=== PATIENT | male | born 1980 | race Caucasian/White ===

== ENCOUNTER 2016-10-05 17:14 | Emergency (ER) | payer MEDICAID ==
[~2016-10-05] VITALS: Wt 79.0 kg
[~2016-10-05 17:14] MED LIST: AMO500 PO; CEPH-443 PO; DIPH25CA6 PO; HYDR-3498 PO; HYDR-762 PO; IBUP-1542 PO; PRED20TA PO
[2016-10-05] MEDS ORDERED: AMO500 PO (17:47)
--- NOTE | 2016-10-05 18:32 | ERD ---
ER Documentation Chief Complaint Date/Time DATE: 10/05/16 TIME: 18:26 Chief Complaint THROAT PAIN HPI This is a 36-year-old male presents emergency department for sore throat and cough 5 days. Patient states sore throat is severe at times. Cough is dry nonproductive. No wheezing, shortness of breath or difficulty breathing. No chest pain or back pain. No difficulty swallowing or drooling. No muffled voice. No earache or headache. No generalized body aches. No nausea, vomiting , diarrhea or abdominal pain. ROS All systems reviewed and are negative except as per history of present illness. Medications Home Meds Active Scripts Amoxicillin* (Amoxicillin*) 500 Mg Cap, 500 MG PO BID for 10 Days, CAP Prov:COBY OQUENDO NP 10/05/16 Prednisone* (Prednisone*) 20 Mg Tab, 40 MG PO DAILY for 4 Days, TAB Prov:ALLAN RODRIGUEZ MD 07/07/16 Amoxicillin* (Amoxicillin*) 500 Mg Cap, 500 MG PO TID for 10 Days, CAP Prov:ALLAN RODRIGUEZ MD 07/07/16 Ibuprofen* (Ibuprofen*) 600 Mg Tablet, 600 MG PO Q6, #15 TAB Prov:ALLAN RODRIGUEZ MD 07/07/16 Diphenhydramine Hcl (Benadryl) 25 Mg Cap, 25 MG PO QID, #14 CAP Prov:ALLAN RODRIGUEZ MD 10/13/15 Ibuprofen* (Ibuprofen*) 600 Mg Tablet, 600 MG PO Q6, #14 TAB Prov:ALLAN RODRIGUEZ MD 10/13/15 Cephalexin* (Keflex*) 500 Mg Capsule, 500 MG PO QID, #28 CAP Prov:ALLAN RODRIGUEZ MD 10/13/15 Hydrocodone Bit-Acetaminophen* ([place]*) 5-325 Mg Tab, 1 TAB PO Q6 Y for PAIN, # 20 TAB Prov:JARETT ROSE NP 07/18/15 Ibuprofen* (Ibuprofen*) 600 Mg Tablet, 600 MG PO Q6H Y for pa, #30 TAB Prov:JARETT ROSE NP 07/18/15 Hydrocodone Bit-Acetaminophen* ([place]*) 10-325 Mg Tablet, 1 TAB PO Q6 Y for PAIN , #12 TAB Prov:LAURA EMANUEL MD 07/02/15 Allergies Allergies: Coded Allergies: No Known Allergy (Unverified , 10/13/15) PMhx/Soc Medical and Surgical Hx: pt denies Medical Hx, pt denies Surgical Hx History of Surgery: No Anesthesia Reaction: No Hx Neurological Disorder: No Hx Respiratory Disorders: No Hx Cardiac Disorders: No Hx Psychiatric Problems: No Hx Miscellaneous Medical Probl: No Hx Alcohol Use: No Hx Substance Use: No Hx Tobacco Use: No Physical Exam Vitals Vital Signs Date Time Temp Pulse Resp B/P Pulse Ox O2 Delivery O2 Flow Rate FiO2 10/05/16 17:20 98.1 83 17 133/65 98 Physical Exam Const: No acute distress, alert Head: Atraumatic Eyes: Normal Conjunctiva ENT: Normal External Ears, Nose and Mouth. Mildly erythematous to posterior pharynx. No exudate. TMs normal bilaterally. Neck: Full range of motion..~ No meningismus. Resp: Clear to auscultation bilaterally. No wheezing, rhonchi or crackles. Cardio: Regular rate and rhythm, no murmurs Abd: Soft, non tender, non distended. Normal bowel sounds Skin: No petechiae or rashes Back: No midline or flank tenderness Ext: No cyanosis, or edema Neur: Awake and alert Psych: Normal Mood and Affect Procedures/MDM Medical decision makin-year-old male presents emergency department for sore throat and cough 5 days. No signs or symptoms of respiratory distress. Oxygen saturation 98% on room air. No fevers or chills. ENT exam reveals erythematous posterior pharynx without exudate or lesions. Patient is requesting antibiotic in case symptoms worsen. Vital signs remained stable. Patient appears calm and comfortable throughout visit. Low suspicion for strep pharyngitis or peritonsillar abscess. Patient likely has viral pharyngitis versus upper respiratory infection. Patient is appropriate for outpatient management will be given prescription for amoxicillin in case symptoms worsen. Instructed patient to follow-up with primary care provider in the next 2-3 days for reassessment and additional management. Return to ED for any high fever, chest pain, difficulty breathing, shortness breath, wheezing, vomiting, diarrhea, abdominal pain or any new or worsening symptoms. Patient verbalizes understanding. All questions answered at discharge. Departure Diagnosis: Primary Impression: Sore throat Condition: Stable Patient Instructions: Self-Care for Sore Throats Referrals: [facility] () Usted se cordova hecho un examen mdico de control que le indica que no est en lucas condicin que requiera tratamiento urgente en el Departamento de Emergencia. Un estudio ms profundo y el tratamiento de hu condicin pueden esperar sin ningn riesgo hasta que usted sea atendida/o en el consultorio de hu mdico o lucas cl david. Es responsabilidad suya arreglar lucas jeni para el seguimiento del chitra. MANEJO DE CONDICIONES NO URGENTES EN EL FUTURO 1) Si usted tiene un mdico de atencin primaria: Usted debera llamar a hu mdico de atencin primaria antes de venir al departamento de emergencia. Despus de las horas de consultorio, hu doctor o hu asociado/a est disponible por telfono. El mdico o enfermero de oliva en el servicio telefnico puede asesorarle por sudha medio para atender el problema, o chitra contrario se puede programar lucas jeni. 2) Si usted no tiene un mdico de atencin primaria: Llame al mdico o clnica de referencia que aparece abajo kylah las horas de consultorio para hacer lucas jeni para que le vean. CLINICAS: [facility] [phone] [facility] [phone] [facility] [phone] [address] [facility] [phone] [address] [facility] [phone] [address] [facility]. [phone] [address] [facility] () Usted se cordova hecho un examen mdico de control que le indica que no est en lucas condicin que requiera tratamiento urgente en el Departamento de Emergencia. Un estudio ms profundo y el tratamiento de hu condicin pueden esperar sin ningn riesgo hasta que usted sea atendida/o en el consultorio de hu mdico o lucas cl david. Es responsabilidad suya arreglar lucas jeni para el seguimiento del chitra. MANEJO DE CONDICIONES NO URGENTES EN EL FUTURO 1) Si usted tiene un mdico de atencin primaria: Usted debera llamar a hu mdico de atencin primaria antes de venir al departamento de emergencia. Despus de las horas de consultorio, hu doctor o hu asociado/a est disponible por telfono. El mdico o enfermero de oliva en el servicio telefnico puede asesorarle por sudha medio para atender el problema, o chitra contrario se puede programar lucas jeni. 2) Si usted no tiene un mdico de atencin primaria: Llame al mdico o condado institucions de referencia que aparece abajo kylah las horas de consultorio para hacer lucas jeni para que le vean. SI USTED NO PUEDE PAGAR PARA ANDRE UN MEDICO puede ir a: [facility] [address] [place] [address] [facility] [address] [place] [address] [facility] [address] [place] [address] PARA [facility] [address] [place], [place] [id number] Additional Instructions: Llame al doctor MAANA y todd lucas JENI PARA DENTRO DE 2-3 SCOTT.Dgale a la secretaria que nosotros le instruimos hacer esta jeni.Avise o llame si hu condicin se empeora antes de la jeni. Regresa aqui si peor o no mejor. COBY OQUENDO NP Oct 05, 2016 18:32
== END 2016-10-05 17:49 | disposition home or self-care (01) ==
LOC: E/R 17:14
DX: J02.9 Acute pharyngitis, unspecified (principal)
CPT/HCPCS: 99283

== ENCOUNTER 2017-02-04 18:45 | Emergency (ER) | payer MEDICAID ==
[~2017-02-04] VITALS: Ht 165.1 cm; Wt 81.0 kg
[2017-02-04 18:49] VITALS: Ht 165.1 cm; Wt 81.0 kg
[2017-02-04 19:57] LABS: URINE BLOOD (Dip) POC Negative (NEGATIVE)
--- NOTE | 2017-02-04 20:09 | ERD ---
ER Documentation Chief Complaint Date/Time DATE: 02/04/17 TIME: 20:06 Chief Complaint c/o bilateral eye pain and redness x 2 days. States (+) blurred vision. HPI This 36-year-old male patient presents to the emergency department with multiple unrelated complaint. First patient reports itchy red eyes not improving with eye moisturizer that he had brought at local drugstore, patient reports symptoms for over 7 days. Patient denies any change in vision but reports photosensitivity, denies any discharge coming from his eyes or waking with crest in the morning feeling his eyelids shut. Second complaint is that when he finishes voiding he reports dripping of urine, denies any perianal pain with sitting, denies any history of benign prostate hypertrophy, patient reports that he is sexually active, denies any discharge from his penis. Last complaint is a rash in his left groin he describes as pruritic, patient denies any outdoor sport activities or gym activities does report he sweats easily. Patient has tried no [id number] medication for symptomatic relief of itching. Denies having a primary care physician. Denies dysuria, hematuria, abdominal pain ROS All systems reviewed and are negative except as per history of present illness. Medications Home Meds Active Scripts Amoxicillin* (Amoxicillin*) 500 Mg Cap, 500 MG PO BID for 10 Days, CAP Prov:COBY OQUENDO NP 10/05/16 Prednisone* (Prednisone*) 20 Mg Tab, 40 MG PO DAILY for 4 Days, TAB Prov:ALLAN RODRIGUEZ MD 07/07/16 Amoxicillin* (Amoxicillin*) 500 Mg Cap, 500 MG PO TID for 10 Days, CAP Prov:ALLAN RODRIGUEZ MD 07/07/16 Ibuprofen* (Ibuprofen*) 600 Mg Tablet, 600 MG PO Q6, #15 TAB Prov:ALLAN RODRIGUEZ MD 07/07/16 Diphenhydramine Hcl (Benadryl) 25 Mg Cap, 25 MG PO QID, #14 CAP Prov:ALLAN RODRIGUEZ MD 10/13/15 Ibuprofen* (Ibuprofen*) 600 Mg Tablet, 600 MG PO Q6, #14 TAB Prov:ALLAN RODRIGUEZ MD 10/13/15 Cephalexin* (Keflex*) 500 Mg Capsule, 500 MG PO QID, #28 CAP Prov:ALLAN RODRIGUEZ MD 10/13/15 Hydrocodone Bit-Acetaminophen* ([place]*) 5-325 Mg Tab, 1 TAB PO Q6 Y for PAIN, # 20 TAB Prov:JARETT ROSE NP 07/18/15 Ibuprofen* (Ibuprofen*) 600 Mg Tablet, 600 MG PO Q6H Y for pa, #30 TAB Prov:JARETT ROSE NP 07/18/15 Hydrocodone Bit-Acetaminophen* ([place]*) 10-325 Mg Tablet, 1 TAB PO Q6 Y for PAIN , #12 TAB Prov:LAURA EMANUEL MD 07/02/15 Allergies Allergies: Coded Allergies: No Known Allergy (Unverified , 10/13/15) PMhx/Soc History of Surgery: No Anesthesia Reaction: No Hx Neurological Disorder: No Hx Respiratory Disorders: No Hx Cardiac Disorders: No Hx Psychiatric Problems: No Hx Miscellaneous Medical Probl: No Hx Alcohol Use: No Hx Substance Use: No Hx Tobacco Use: No Physical Exam Vitals Vital Signs Date Time Temp Pulse Resp B/P Pulse Ox O2 Delivery O2 Flow Rate FiO2 02/04/17 18:49 97.7 86 18 124/83 97 Vitals stable, triage notes reviewed Physical Exam Const: Well-nourished, well-hydrated, well-appearing in no acute distress Head: Atraumatic Eye Exam: Visual Acuity: 20/20 bilaterally Visual Jacobs: Intact in all four quadrants bilaterally Lac ducts/glands: No swelling Lids w/ evertion: Normal, no foreign body ENT: Normal External Ears, Nose and Mouth. Neck: Resp: Respirations even and unlabored, no respiratory distress Cardio: Abd: Soft, non tender, non distended. Skin: Left groin presents with white circumscribed plaques scaly, skin intact without erythema or scratch miller. Back: Ext: Neur: Awake and alert Psych: Normal Mood and Affect Results 24 hrs Laboratory Tests Test 02/04/17 20:02 Bedside Urine pH (LAB) 7.0 Bedside Urine Protein (LAB) Negative Bedside Urine Glucose (UA) Negative Bedside Urine Ketones (LAB) Negative Bedside Urine Blood Negative Bedside Urine Nitrite (LAB) Negative Bedside Urine Leukocyte Esterase (L Negative Urinalysis normal findings without evidence of infection no leukocytosis, nitrates or microscopic hematuria Procedures/MDM This 36-year-old male patient presents to emergency department with multiple complaints. Patient reports red irritated eyes without any evidence of infection, low suspicion for conjunctivitis, foreign body, or iritis. Patient secondary complaint is a post mitration drip without complaint of dysuria, hematuria, or black pain. Last complaint is a paretic left groin rash. Low suspicion for a urinary tract infection, STI or HSV, or prostatitis physical exam supports a tinea cruris, urinary tract infection ruled out by normal urinalysis, patient will be discharged home with prescriptions for Opticon A ophthalmic drops, ketoconazole applied to affected area 3 times daily and instructions to follow-up with primary care physician for prostate evaluation. I feel the patient is stable for discharge at this time. I have discussed results, examination findings, the treatment plan with the patient and family present prior to discharge. Indications for emergent reevaluation, side effects of medication were also discussed. All questions were answered. Patient verbalizes understanding and agrees with plan of care. Departure Diagnosis: Primary Impression: Tinea cruris Additional Impression: Allergic conjunctivitis Laterality: bilateral Qualified Code: H10.13 - Allergic conjunctivitis, bilateral Patient Instructions: Conjunctivitis, Allergic, Tinea Cruris, General [facility] Additional Instructions: Thank you for for coming to [facility] for your care today. Please ask your nurse or provider if you have questions about your care today and do not leave until all your questions have been answered. Please use any medications given as directed and follow-up with your doctor (or the doctor you were referred to) in the next 2-3 days. If you do not have a primary care doctor you may follow up at the [facility] (listed below). You may also use motrin and tylenol as needed for fever and/or pain unless instructed otherwise by your provider or nurse. Indications for more urgent follow-up have been discussed, but you may return to the Emergency Department at ANY time for any worrisome or worsening symptoms. If you have abdominal pain, please know that no test or exam you received is perfect and you should follow up within 8 hours for continued pain. If you had any imaging studies today, such as an X-Ray or CT Scan, these studies will be reviewed later by a radiologist. You will be called if there are important findings that were not identified today, so make sure the contact information you provided at registration is correct. If you received any narcotic pain control medicine today, such as Vicodin, Morphine or Dilaudid, your coordination and judgment may be affected for a number of hours. Please do not drive or operate heavy machinery, and you may want someone to assist you at home. If you were given a prescription for narcotic medication, be aware that it is very addictive- use sparingly and only if necessary. ZUNILDA MONTEZ Feb 04, 2017 20:09
[2017-02-04] MEDS ORDERED: NAPH15DR6 OP (20:23)
[2017-02-04] MEDS ORDERED: KET2CR15 TOP (20:26)
== END 2017-02-04 20:36 | disposition home or self-care (01) ==
LOC: FTE 18:45
DX: B35.6 Tinea cruris (principal); H10.13 Acute atopic conjunctivitis, bilateral
CPT/HCPCS: 81003; 99283

== ENCOUNTER 2017-09-02 19:20 | Emergency (ER) | END 2017-09-02 21:22 | disposition home or self-care (01) ==

== ENCOUNTER 2017-09-11 20:39 | Emergency (ER) | END 2017-09-12 05:32 | disposition home or self-care (01) ==

== ENCOUNTER 2018-06-14 10:49 | Emergency (ER) | END 2018-06-14 11:33 | disposition home or self-care (01) ==

== ENCOUNTER 2018-08-18 13:52 | Emergency (ER) | payer MEDICAID ==
[~2018-08-18] VITALS: Ht 162.6 cm; Wt 71.6 kg
[~2018-08-18 13:52] MED LIST changes: +ACET500C5 PO; +ALBU8.5H8 INH; -AMO500 PO; +AMOX500C2 PO; +AZIT250T PO; +BENZ-6 PO; +CETI10CA PO; +HYDR-3980 PO; +IBUP800T48 PO; +KET2CR15 TOP; +NAPH15DR6 OP
[2018-08-18 14:00] VITALS: Ht 162.6 cm; Wt 71.6 kg
[2018-08-18] MEDS ORDERED: KETOROLAC 15 MG INJ IV STA (21:45)
[2018-08-18] MEDS ORDERED: SOD CHLORIDE 0.9% 1,000 ML IV STA (21:45)
--- NOTE | 2018-08-18 22:04 | ERD ---
ER Documentation Chief Complaint Chief Complaint WOUND CHECK TO ABD INCISION HERINA REPAIR JUN 2018. BLEEDING/CLEAR LIQUID HPI 38-year-old man complaining of constant nonradiating nonexertional pain to the right groin status post herniorrhaphy about a month and a half ago. He denies fevers or chills, no discharge, no chest pain or shortness of breath. ROS All systems reviewed and are negative except as per history of present illness. Medications Home Meds Discontinued Scripts Ibuprofen* (Motrin*) 600 Mg Tab, 600 MG PO Q8, #15 TAB Prov:DELFINO NINA MD 06/14/18 Azithromycin* (Zithromax*) 250 Mg Tablet, 250 MG PO .ZPACK DIRECTED, #6 TAB TAKE 500 MG (2 TABS) THE FIRST DAY THEN 250 MG (1 TAB) DAYS 2-5 Prov:DELFINO NINA MD 06/14/18 Hydrocodone/Acetaminophen ([place] 10-325 Tablet) 1 Each Tablet, 1 TAB PO Q6H PRN for PAIN, #20 TAB Prov:PASMALINA MOMIN F 09/12/17 Ibuprofen* (Motrin*) 800 Mg Tab, 800 MG PO Q6H PRN for PAIN AND OR ELEVATED TEMP, #30 TAB Prov:KRYSILAKADE WINTERSAR F 09/12/17 Acetaminophen* (Tylophen*) 500 Mg Capsule, 1 CAP PO Q6H PRN for PAIN AND OR ELEVATED TEMP, #20 CAP Prov:JARETT ROSE NP 09/02/17 Ibuprofen* (Motrin*) 600 Mg Tab, 600 MG PO Q6H PRN for PAIN AND OR ELEVATED TEMP, #30 TAB Prov:JARETT ROSE NP 09/02/17 Cetirizine Hcl* (Zyrtec*) 10 Mg Capsule, 10 MG PO DAILY, #30 TAB.CHEW Prov:JARETT ROSE NP 09/02/17 Benzonatate* (Tessalon Perle*) 100 Mg Capsule, 100 MG PO Q8H PRN for COUGH, #20 CAP Prov:JARETT ROSE NP 09/02/17 Albuterol Sulfate* (Proair HFA*) 8.5 Gm Hfa.aer.ad, 2 PUFF INH Q4H PRN for WHEEZING AND SOB, #1 INHALER Prov:JARETT ROSE NP 09/02/17 Ketoconazole* (Ketoconazole* 2% Cream (15gm)) 1 Applic Cr, 1 APPLIC TOP BID for 14 Days, TUB Prov:MELIDA,ZUNILDA 02/04/17 Naphazoline Hcl/Phenir Mal (Opcon-A Eye Drops) 15 Ml Drops, 15 ML OP BID for 10 Days, BOTTLE Prov:MELIDA,ZUNILDA 02/04/17 Amoxicillin* (Amoxicillin*) 500 Mg Cap, 500 MG PO BID for 10 Days, CAP Prov:COBY OQUENDO NP 10/05/16 Prednisone* (Prednisone*) 20 Mg Tab, 40 MG PO DAILY for 4 Days, TAB Prov:ALLAN RODRIGUEZ MD 07/07/16 Amoxicillin* (Amoxicillin*) 500 Mg Cap, 500 MG PO TID for 10 Days, CAP Prov:ALLAN RODRIGUEZ MD 07/07/16 Ibuprofen* (Ibuprofen*) 600 Mg Tablet, 600 MG PO Q6, #15 TAB Prov:ALLAN RODRIGUEZ MD 07/07/16 Diphenhydramine Hcl (Benadryl) 25 Mg Cap, 25 MG PO QID, #14 CAP Prov:ALLAN RODRIGUEZ MD 10/13/15 Ibuprofen* (Ibuprofen*) 600 Mg Tablet, 600 MG PO Q6, #14 TAB Prov:ALLAN RODRIGUEZ MD 10/13/15 Cephalexin* (Keflex*) 500 Mg Capsule, 500 MG PO QID, #28 CAP Prov:ALLAN RODRIGUEZ MD 10/13/15 Hydrocodone Bit-Acetaminophen* ([place]*) 5-325 Mg Tab, 1 TAB PO Q6 PRN for PAIN, #20 TAB Prov:JARETT ROSE NP 07/18/15 Ibuprofen* (Ibuprofen*) 600 Mg Tablet, 600 MG PO Q6H PRN for pa, #30 TAB Prov:JARETT ROSE NP 07/18/15 Hydrocodone Bit-Acetaminophen* ([place]*) 10-325 Mg Tablet, 1 TAB PO Q6 PRN for PAIN, #12 TAB Prov:LAURA EMANUEL MD 07/02/15 Allergies Allergies: Coded Allergies: No Known Allergy (Unverified , 08/18/18) PMhx/Soc History of Surgery: Yes (R groin hernia repair 06/2018) Anesthesia Reaction: No Hx Neurological Disorder: No Hx Respiratory Disorders: No Hx Cardiac Disorders: No Hx Psychiatric Problems: No Hx Miscellaneous Medical Probl: Yes (pt states Lt shoulder clavical fx in past and was taking tramadol) Hx Alcohol Use: No Hx Substance Use: No Hx Tobacco Use: Yes (quit 2007) Smoking Status: Former smoker FmHx Family History: No diabetes Physical Exam Vitals Vital Signs Date Temp Pulse Resp B/P (MAP) Pulse Ox O2 O2 Flow FiO2 Time Delivery Rate 08/18/18 97.5 54 16 122/90 99 Room Air 20:45 (101) 08/18/18 98.2 74 16 145/82 99 14:00 (103) Physical Exam GENERAL: Well-developed, well-nourished, well-hydrated, in no apparent distress, looks nontoxic in appearance HEENT: Moist mucous membranes, pink conjunctiva, no cervical spine tenderness or step-off deformities, no goiter, no jaundice or icterus, extraocular movements intact without pain. No submandibular induration, and no pharyngeal erythema NEURO: Alert and oriented 3, cranial nerves II through XII intact bilaterally, pupils equal round reactive to light, no focal deficits or facial asymmetry, sensation intact distally Strength 5/5 in upper and lower extremities bilaterally CARDIAC: Regular rate and rhythm, no murmurs rubs or gallops LUNGS: Clear bilaterally no wheezing crackles or stridor ABDOMEN: Soft mildly tender right groin over the surgical site. Incision is clean and dry without purulent discharge or wound dehiscence SKIN: Warm and dry to touch, no abrasions, contusions, or hematomas, no lacerations, no ecchymosis, no target lesions, and without ulcers EXTREMITIES: No clubbing cyanosis or edema, calves are bilaterally symmetrical, no Homans sign, no popliteal cord sign. Distal pulses equal and bilateral PSYCH: Normal affect without agitation or irritability Result Diagram: 08/18/18219908/18/182199 Results 24 hrs Laboratory Tests Test 08/18/18 22:00 White Blood Count 6.6 10^3/ul Red Blood Count 5.57 10^6/ul Hemoglobin 16.4 g/dl Hematocrit 48.6 % Mean Corpuscular Volume 87.3 fl Mean Corpuscular Hemoglobin 29.4 pg Mean Corpuscular Hemoglobin Concent 33.7 g/dl Red Cell Distribution Width 12.9 % Platelet Count 309 10^3/UL Mean Platelet Volume 9.0 fl Immature Granulocytes % 0.600 % Neutrophils % 43.1 % Lymphocytes % 44.7 % Monocytes % 9.0 % Eosinophils % 2.1 % Basophils % 0.5 % Nucleated Red Blood Cells % 0.0 /100WBC Immature Granulocytes # 0.040 10^3/ul Neutrophils # 2.8 10^3/ul Lymphocytes # 2.9 10^3/ul Monocytes # 0.6 10^3/ul Eosinophils # 0.1 10^3/ul Basophils # 0.0 10^3/ul Nucleated Red Blood Cells # 0.0 10^3/ul Sodium Level 143 mmol/L Potassium Level 3.9 mmol/L Chloride Level 98 mmol/L Carbon Dioxide Level 30 mmol/L Anion Gap 15 Blood Urea Nitrogen 8 mg/dl Creatinine 0.68 mg/dl Est Glomerular Filtrat Rate mL/min > 60 mL/min Glucose Level 95 mg/dl Calcium Level 9.9 mg/dl Total Bilirubin 1.1 mg/dl Direct Bilirubin 0.00 mg/dl Indirect Bilirubin 1.1 mg/dl Aspartate Amino Transf (AST/SGOT) 30 IU/L Alanine Aminotransferase (ALT/SGPT) 30 IU/L Alkaline Phosphatase 79 IU/L Total Protein 8.2 g/dl Albumin 4.6 g/dl Globulin 3.60 g/dl Albumin/Globulin Ratio 1.27 Lipase 94 U/L Current Medications Medications Dose Sig/Mary Start Time Status Last (Trade) Ordered Route PRN Stop Time Admin Dose Reason Admin Sodium 1,000 ml @ Q1H STAT 08/18/18 DC 08/18/18 Chloride 1,000 mls/hr IV 21:45 22:11 08/18/18 22:44 Ketorolac 15 mg ONCE STAT 08/18/18 DC 08/18/18 Tromethamine IV 21:45 22:11 (Toradol) 08/18/18 21:47 Procedures/MDM IV line was established patient was placed on rn cardiac cath rhythm strip revealed a sinus rhythm at about 80 bpm with upright P and T waves. Patient was afebrile I administered 1 L normal saline IV, Toradol [address] scan of the abdomen and pelvis was performed, IMPRESSION: Status post right inguinal hernia repair. Small umbilical hernia containing fat. Mildly enlarged prostate. Otherwise no acute abnormality identified within the abdomen and pelvis. CBC and electrolytes are normal, liver function tests were normal Differential diagnoses considered, included but not limited to acute coronary syndrome, pulmonary embolism, aortic dissection, abdominal aortic aneurysm, sepsis, stroke, meningitis, encephalitis, pneumonia, appendicitis, cholecystitis, bowel obstruction, pyelonephritis, nephrolithiasis, cystitis, as well as metabolic, hematologic, and electrolyte abnormalities. As well as abscess, cellulitis, fractures, and dislocations. Patient feels much better at this time, and vital signs are normal, symptoms have improved. I did give strict instructions to return to the ED if symptoms continue or worsen, patient will otherwise follow-up with primary care physician. Patient understood instructions and agreed to plan. Disclaimer: Inadvertent spelling and grammatical errors are likely due to EHR/dictation software use and do not reflect on the overall quality of patient care. Also, please note that the electronic time recorded on this note does not necessarily reflect the actual time of the patient encounter. Departure Diagnosis: Primary Impression: Encounter for wound re-check Additional Impression: Postoperative pain Condition: Good ANNE MARIE SMITH MD Aug 18, 2018 22:04
[2018-08-18] MEDS ORDERED: LIDO700A29 TP (23:08)
[2018-08-18] MEDS ORDERED: IBUP-1542 PO (23:08)
[2018-08-18 23:18] VITALS: BP 111/81; PULSE 65; RESP 16
== END 2018-08-18 23:25 | disposition home or self-care (01) ==
LOC: E/R 13:52
DX: G89.18 Other acute postprocedural pain (principal); Z87.891 Personal history of nicotine dependence
CPT/HCPCS: 36415; 74176; 80053; 83690; 85025; 96374; J1885; J7030; Z7502

== ENCOUNTER 2018-11-12 20:09 | Emergency (ER) | payer MEDICAID ==
[~2018-11-12] VITALS: Ht 162.6 cm; Wt 72.5 kg
[~2018-11-12 20:09] MED LIST changes: -ACET500C5 PO; -ALBU8.5H8 INH; -AMOX500C2 PO; -AZIT250T PO; -BENZ-6 PO; -CEPH-443 PO; -CETI10CA PO; -DIPH25CA6 PO; -HYDR-3498 PO; -HYDR-3980 PO; -HYDR-762 PO; -IBUP800T48 PO; -KET2CR15 TOP; +LIDO700A29 TP; -NAPH15DR6 OP; -PRED20TA PO
[2018-11-12 20:25] VITALS: BP 116/61; PULSE 71; RESP 18; Ht 162.6 cm; Wt 72.5 kg
[2018-11-12] MEDS ORDERED: KETOROLAC 30 MG INJ IM STA (23:00)
[2018-11-12] MEDS ORDERED: IBUP800T48 PO (23:24)
[2018-11-12] MEDS ORDERED: TRAM50TA PO (23:24)
[2018-11-12] MEDS ORDERED: CYCL10TA7 PO (23:24)
--- NOTE | 2018-11-25 00:25 | ERD ---
ER Documentation Chief Complaint Chief Complaint upper back pain x 2 weeks, denies trauma HPI 38-year-old male presents with upper back pain and is had for 2 weeks. Denies any trauma. No bowel or bladder incontinence. No nausea or vomiting. No fever. No dysuria hematuria frequency. ROS All systems reviewed and are negative except as per history of present illness. Medications Home Meds Active Scripts Tramadol Hcl* (Ultram*) 50 Mg Tablet, 50 MG PO Q6H PRN for PAIN, #20 TAB Prov:ROWAN MIKE PA-C 11/12/18 Cyclobenzaprine Hcl* (Cyclobenzaprine Hcl*) 10 Mg Tablet, 10 MG PO Q8 PRN for MUSCLE SPASMS, #20 TAB Prov:ROWAN MIKE PA-C 11/12/18 Ibuprofen* (Motrin*) 800 Mg Tab, 800 MG PO Q6, #30 TAB Prov:ROWAN MIKE PA-C 11/12/18 Lidocaine (Lidoderm) 1 Each Adh..patch, 1 EACH TP BID PRN for PAIN, #1 BOX Prov:ANNE MARIE SMITH MD 08/18/18 Ibuprofen* (Motrin*) 600 Mg Tab, 600 MG PO Q8 PRN for PAIN AND/OR INFLAMMATION, #30 TAB Prov:ANNE MARIE SMITH MD 08/18/18 Allergies Allergies: Coded Allergies: No Known Allergy (Unverified , 08/18/18) PMhx/Soc History of Surgery: Yes (R groin hernia repair 06/2018) Anesthesia Reaction: No Hx Neurological Disorder: No Hx Respiratory Disorders: No Hx Cardiac Disorders: No Hx Psychiatric Problems: No Hx Miscellaneous Medical Probl: Yes (pt states Lt shoulder clavical fx in past and was taking tramadol) Hx Alcohol Use: No Hx Substance Use: No Hx Tobacco Use: Yes (quit 2007) Smoking Status: Former smoker FmHx Family History: No diabetes Physical Exam Physical Exam Const: No acute distress Head: Atraumatic Eyes: Normal Conjunctiva ENT: Normal External Ears, Nose and Mouth. Neck: Full range of motion. No meningismus. Resp: Clear to auscultation bilaterally Cardio: Regular rate and rhythm, no murmurs Back Exam: Compartments: Soft Motor: Normal flexion and extension of bilateral hip/knee/ankle/foot Sensation: Intact to light touch throughout Bones: No midline TTP Results 24 hrs Current Medications Medications Dose Sig/Mary Start Time Status Last (Trade) Ordered Route PRN Stop Time Admin Dose Reason Admin Ketorolac 30 mg ONCE STAT 11/12/18 DC 11/12/18 Tromethamine IM 23:00 23:22 (Toradol) 11/12/18 23:01 Procedures/MDM The differential diagnosis includes but is not limited to muscle strain, ligament strain, contusion, arthritis, discogenetic disease, non- musculoskeletal, cauda equina syndrome, cord compression, abscess and others. Prescriptions for ibuprofen, tramadol, and Flexeril given. Patient counseled regarding my diagnostic impression and care plan. Prior to discharge all questions answered. Pt agrees with treatment plan and understands strict return precautions. Pt is instructed to follow up with primary care provider within 24- 48 hours. Precautionary instructions provided including instructions to return to the ER if not improving or for any worsening or changing symptoms or concerns. Departure Diagnosis: Primary Impression: Back pain Condition: Stable Patient Instructions: Back Pain (Acute Or Chronic) Additional Instructions: Llame al doctor YA y todd lucas JENI PARA DENTRO DE 1-2 SCOTT.Dgale a la secretaria que nosotros le instruimos hacer esta jeni.Avise o llame si hu condicin se empeora antes de la jeni. Regresa aqui si peor o no mejor. ROWAN MIKE PA-C November 25, 2018 00:25
== END 2018-11-13 00:12 | disposition home or self-care (01) ==
LOC: FTE 20:09
DX: M54.6 Pain in thoracic spine (principal); Z87.891 Personal history of nicotine dependence
CPT/HCPCS: 96372; J1885; Z7502